=== PATIENT | female | born 1965 | race Caucasian/White ===

== ENCOUNTER 2019-12-02 12:30 | Emergency (ER) | payer OTHER ==
--- NOTE | 2019-12-02 13:31 | ED Physician Documentation ---
History of Present Illness - Stated complaint Stated Complaint: R FOOT INJ - Chief complaint Chief Complaint: Trauma Ext - History obtained from History obtained from: Patient - History of Present Illness Timing: How many days ago (3) - Additonal information Additional information: 54-year-old female presents to the emergency department with acute right foot and ankle pain. Reports descending stairs 3 days ago missing the last 2 stairs and falling forward onto her foot. She had immediate and extensive swelling of the foot and ankle both medially and bilaterally. She has not been able to bear any weight and has been using home crutches. She has iced the foot continuously now for over 36 hours secondary to pain and bruising. No history of previous injury to the foot though she is on steroids chronically due to a history of adrenal insufficiency Review of Systems Constitutional: reports: Reviewed and negative Eyes: reports: Reviewed and negative Ears: reports: Reviewed and negative Nose: reports: Reviewed and negative Cardiac: reports: Reviewed and negative Respiratory: reports: Reviewed and negative GI: reports: Reviewed and negative : reports: Reviewed and negative Skin: reports: Other (Dense of bruising to the right foot and ankle) Musculoskeletal: reports: Extremity pain, Joint pain, Extremity swelling, Joint swelling Neurologic: reports: Reviewed and negative Psychiatric: reports: Reviewed and negative Endocrine: reports: Other (adrenal insufficiency) PD PAST MEDICAL HISTORY - Past Medical History Past Medical History: Yes Cardiovascular: None Respiratory: None Neuro: None Endocrine/Autoimmune: None GI: None ELEMENTARY SCHOOL REGISTRAR: None : None HEENT: None Psych: None Musculoskeletal: None Derm: None - Past Surgical History Past Surgical History: No Ortho: Rotator cuff repair /ELEMENTARY SCHOOL REGISTRAR: section - Present Medications Home Medications: Ambulatory Orders Medication Instructions Recorded Confirmed Hydrocodone/Acetaminophen [[employer] 1 each PO BID PRN #15 tablet 12/02/19 5-325 Tablet] - Allergies Allergies/Adverse Reactions: Allergies Allergy/AdvReac Type Severity Reaction Status Date / Time shellfish derived Allergy Unknown Verified 12/02/19 13:01 - Social History Does the pt smoke?: No Smoking Status: Never smoker - Immunizations Immunizations are current?: Yes - POLST Patient has POLST: No PD ED PE EXPANDED - General General: Alert, No acute distress, Well developed/nourished - Extremities Extremities: Right ankle (swelling lateral and medial malleolous; normal dorsi and plant frlexion. Full ROM of right ankle), Right foot (swelling and ecchymosis dorsum of right food over the 2,3,4,5th metatarsals. tenderness with palpation proximal 4/5th metatarsals) Results - Vitals Vitals: Vital Signs - 24 hr 12/02/19 12:54 Temperature 36.6 C Heart Rate 61 Respiratory 14 Rate Blood Pressure 108/73 O2 Saturation 99 Oxygen O2 Source Room air - Rads (name of study) right ankle/foot Radiology: Final report received (Avulsion injury Involving the lateral aspect o f the calcaneal cuboid joint with lateral soft tissue swelling) Departure - Departure Disposition: 01 Home, Self Care Clinical Impression: Ankle fracture, right Qualifiers: Encounter type: initial encounter Fracture type: closed Qualified Code(s): S82.891A - Other fracture of right lower leg, initial encounter for closed fracture Condition: Stable Record reviewed to determine appropriate education?: Yes Follow-Up: Joseph Shannon MD [Provider Admit Priv/Credential] - Prescriptions: Hydrocodone/Acetaminophen [[employer] 5-325 Tablet] 1 each PO BID PRN #15 tablet PRN Reason: Pain Comments: The x-ray shows that you have an avulsion fracture of the calcaneal cuboid joint on your right foot. The splint that we have placed you in is temporary. Please call the orthopedics department to schedule follow-up tomorrow. If at any point you have numbness or tingling in the foot feel that the splint is too tight or develop fevers please return to the emergency department to be reevaluated. Continue to be nonweightbearing on the ankle until seen by orthopedics therefore use your crutches at all times I have prescribed a limited amount of Vicodin for severe pain do not drive if taking it. I do recommend Tylenol or ibuprofen for pain control otherwise
[2019-12-02] MEDS ORDERED: HYDROcod/ACETAM 5/325 MG TABLET PO STA (13:37)
--- NOTE | 2019-12-02 14:22 | XRAY Report ---
PROCEDURE: Ankle 3 View RT INDICATIONS: pain; r/o fx TECHNIQUE: 3 views of the ankle were acquired. COMPARISON: None FINDINGS: Bones: Suggestion of a remote injury involving lateral and dorsal aspect of calcaneocuboid joint is s een. No other fracture or dislocation. Ankle mortise is normally aligned. No suspicious bony lesions . Soft tissues: No tibiotalar joint effusion. Achilles tendon appears normal. Mild lateral ankle sof t tissue swelling is seen. IMPRESSION: Acute avulsion injury involving lateral and dorsal aspect of proximal cuboid adjacent to the calcaneocuboid joint with lateral ankle soft tissue swelling. Reviewed by: Glenn Moore MD on 12/02/2019 2:21 PM PDT Approved by: Glenn Moore MD on 12/02/2019 2:21 PM PDT Station ID: [id number]
--- NOTE | 2019-12-02 14:24 | XRAY Report ---
PROCEDURE: Foot 3 View RT INDICATIONS: fall r/o fracture TECHNIQUE: 3 views of the foot were acquired. COMPARISON: None FINDINGS: Bones: Subtle cortical irregularity involving lateral aspect of anterior calcaneus/proximal cuboid moe ne is seen suggestive of avulsion injury in this area. Mild lateral ankle and hindfoot soft tissue sw elling is also seen. No suspicious bony lesions. Soft tissues: No tibiotalar joint effusion. Achilles tendon appears normal. IMPRESSION: Suggestion of acute avulsion injury involving lateral aspect of calcaneocuboid joint with lateral sof t tissues swelling. Reviewed by: Glenn Moore MD on 12/02/2019 2:22 PM PDT Approved by: Glenn Moore MD on 12/02/2019 2:22 PM PDT Station ID: [id number]
[2019-12-02 15:18] VITALS: BP 136/78
== END 2019-12-02 15:19 | disposition home or self-care (01) ==
LOC: ED 12:30
DX: S92.211A Displaced fracture of cuboid bone of right foot, initial encounter for closed fracture (principal); W10.9XXA Fall (on) (from) unspecified stairs and steps, initial encounter; Y93.89 Activity, other specified
CPT/HCPCS: 73610; 73630; 99283; A9270

== ENCOUNTER 2020-01-23 08:00 | Outpatient (CLI) | payer OTHER ==
--- NOTE | 2020-01-23 16:20 | XRAY Report ---
PROCEDURE: Foot 3 View RT INDICATIONS: RIGHT FOOT FRACTURE TECHNIQUE: 3 nonweightbearing views of the foot were acquired. COMPARISON: Right foot radiographs dated 12/02/2019 FINDINGS: Bones: Small osseous fragment is seen adjacent to lateral aspect of the cuboid at the level of the ca lcaneocuboid articulation. Stable mild osseous irregularity at the dorsal aspect of the talar head. F indings do not appear significantly changed when compared to the radiographs from 12/02/2019. No suspi cious bony lesions. Soft tissues: Soft tissue edema is seen surrounding the ankle. IMPRESSION: Tiny osseous fragment adjacent to the calcaneocuboid joint may represent an avulsion fragment, not si gnificantly changed in appearance when compared to the radiographs from 12/02/2019. There is also inta ct osseous irregularity at the dorsal aspect of the talar head. Reviewed by: Nate Sanchez MD on 01/23/2020 4:18 PM PST Approved by: Nate Sanchez MD on 01/23/2020 4:18 PM PST Station ID: [id number]
== END 2020-01-23 23:59 | disposition home or self-care (01) ==
LOC: DI.WCP 08:00
PROVIDERS: ATTEND Physician Assistant
DX: S92.214D Nondisplaced fracture of cuboid bone of right foot, subsequent encounter for fracture with routine healing (principal)

== ENCOUNTER 2020-10-12 08:12 | Outpatient (CLI) | payer OTHER ==
--- NOTE | 2020-10-12 17:03 | XRAY Report ---
PROCEDURE: Foot 3 View RT INDICATIONS: R FOOT PX TECHNIQUE: 3 views of the right foot were acquired. COMPARISON: 01/23/2020 FINDINGS: Bones: No fractures or dislocations. Small osseous fragment adjacent to the lateral margin of the cu boid bone is identified 01/23/2020 is not seen on the current study. No suspicious bony lesions. Soft tissues: No tibiotalar joint effusion. Achilles tendon appears normal. IMPRESSION: No fracture. No osseous lesion. If there are persistent symptoms or continued clinical concern for pa thology, then repeat plain film radiographs (7-10 days) or advanced imaging (CT, MR, bone scan) shoul d be considered for further evaluation. Reviewed by: Jhoana Reid MD, PhD on 10/12/2020 5:01 PM PDT Approved by: Jhoana Reid MD, PhD on 10/12/2020 5:01 PM PDT Station ID: [id number]
== END 2020-10-12 23:59 | disposition home or self-care (01) ==
LOC: DI.N 08:12
PROVIDERS: ATTEND Physician Assistant
DX: M79.671 Pain in right foot (principal)

== ENCOUNTER 2020-11-11 09:34 | Outpatient (CLI) | payer OTHER ==
[2020-11-11 15:47] LABS: CALCIUM 9.4 mg/dL (8.5-10.3); POTASSIUM 4.7 mmol/L (3.5-5.0)
[2020-11-11 16:03] LABS: ALBUMIN 3.8 g/dL (3.2-5.5); ALBUMIN/GLOBULIN RATIO 1.5 (1.0-2.2); BILIRUBIN,TOTAL 0.5 mg/dL (0.2-1.0); CREATININE 0.6 mg/dL (0.4-1.0); TOTAL PROTEIN 6.3 g/dL (6.7-8.2)
== END 2020-11-11 09:35 | disposition home or self-care (01) ==
LOC: LAB.S 09:34
PROVIDERS: ATTEND Student in an Organized Health Care Education/Training Program
DX: E27.49 Other adrenocortical insufficiency (principal)
CPT/HCPCS: 36415; 80053

== ENCOUNTER 2021-01-05 07:59 | Emergency (ER) | payer OTHER ==
[2021-01-05 08:11] VITALS: BP 116/70
--- NOTE | 2021-01-05 08:22 | ED Physician Documentation ---
PD HPI LOWER EXT INJURY - Stated complaint Stated Complaint: LT LEG INJURY - Chief complaint Chief Complaint: Laceration - History obtained from History obtained from: Patient - History of Present Illness PD HPI LOW EXT INJURY LOCATION: Left Type of injury: Fall (she was getting ready to go to airport for business trip and tripped over her suitcase getting out to car, with striking guillory as fell. Was wearing pants but got skin tear/lac through the clothing, from blunt edge. Large flap laceration front of left lower leg.) Where injury occurred: Home Timing - onset: How many hours ago (1), Today Timing - details: Abrupt onset, Still present Worsened by: Moving, Palpating, Other (she cleansed and apllied bandages to the laceration.) Associated symptoms: No: Weakness, Numbness Similar symptoms before: Has not had sx before, Other (is on chronic steroids due to Addisons disease and states skin bruises easily and slow healing.) Recently seen: Not recently seen Review of Systems Constitutional: denies: Fever, Chills Cardiac: denies: Chest pain / pressure GI: denies: Abdominal Pain Skin: reports: Laceration (s) Neurologic: denies: Focal weakness, Numbness, Altered mental status, Headache PD PAST MEDICAL HISTORY - Past Medical History Cardiovascular: None Respiratory: None Neuro: None Endocrine/Autoimmune: None GI: None AUTOMOTIVE ENGINEERING TECHNICIAN: None : None HEENT: None Psych: None Musculoskeletal: None Derm: None - Past Surgical History Past Surgical History: No Ortho: Rotator cuff repair /AUTOMOTIVE ENGINEERING TECHNICIAN: section - Present Medications Home Medications: Ambulatory Orders Medication Instructions Recorded Confirmed Hydrocodone/Acetaminophen [[place] 1 each PO BID PRN #15 tablet 12/02/19 5-325 Tablet] HYDROcod/ACETAM 5/325 [[place] 5/325] 1 ea PO Q6H PRN #18 tablet 01/05/21 cephALEXin [Keflex] 500 mg PO TID #20 cap 01/05/21 - Allergies Allergies/Adverse Reactions: Allergies Allergy/AdvReac Type Severity Reaction Status Date / Time shellfish derived Allergy Unknown Verified 01/05/21 08:11 - Social History Does the pt smoke?: No Smoking Status: Never smoker - Immunizations Immunizations are current?: Yes - POLST Patient has POLST: No PD ED PE NORMAL - Vitals Vital signs reviewed: Yes - General General: Alert and oriented X 3, Well developed/nourished, Other (appears in pain due to lower leg, and limping gait, but able to put full weight on leg. ) - Neck Neck: Supple, no meningeal sign, No bony TTP - Cardiac Cardiac: RRR, No murmur - Respiratory Respiratory: Clear bilaterally - Abdomen Abdomen: Soft, Non tender - Derm Derm: Normal color, Warm and dry - Extremities Extremities: No deformity (tender anterior lower leg without deformity. FLap lac with length 10 cm. ), Other (left anterior lower leg has U-shaped flap lac with connected portion inferior. The upper portion has the tibia almost exposed with just some fatty layer just over it. The lacerated flap is full thickness skin so seem viable base, though the skin layer is thin. no FB. Minimal bleeding in base. ) - Neuro Neuro: Alert and oriented X 3, No motor deficit, No sensory deficit, Normal speech Eye Opening: Spontaneous Motor: Obeys Commands Verbal: Oriented GCS Score: 15 Results - Vitals Vitals: Vital Signs - 24 hr 01/05/21 08:08 Temperature 36.1 C L Heart Rate 101 H Respiratory 16 Rate Blood Pressure 116/70 O2 Saturation 100 Oxygen O2 Source Room air - Rads (name of study) left tib/fib Radiology: Prelim report reviewed (no fractures nor osseous abnormality.), See rad report Procedures - Laceration (location) left anterior lower leg Length in cm: 10 (skin at superior part is the thinnest, but still just full thickness. ) Wound type: Flap, Into subcut fat Neurovascular status: Sensory intact, Motor intact, Vascular intact Anesthesia: Lidocaine 1% with epi, Marcaine 0.5% Wound preparation: Irrigated copiously NS, Wound explored, To the base, debridement of wound edges (traumatic laceration/avulsion) Skin layer closure: Steri strips, Running, Size #-0 - enter number (4), Sutures - enter # (many) Other: Patient tolerated well, No complications, Neurovascular intact, Dressing applied, Tetanus UTD PD MEDICAL DECISION MAKING - ED course Complexity details: reviewed results (no fractures), considered differential (Large flap laceration to fatty tissue layer so likely viable tissue, though fragile skin due to steroids. Concern for slow healing, and suggest tight follow up with PMD and possible wound care clinic. ), d/w patient Departure - Departure Disposition: 01 Home, Self Care Clinical Impression: Laceration of lower leg Qualifiers: Encounter type: initial encounter Laterality: left Qualified Code(s): S81.812A - Laceration without foreign body, left lower leg, initial encounter Condition: Stable Record reviewed to determine appropriate education?: Yes Instructions: ED Laceration All Follow-Up: Feliberto Watters MD [Primary Care Provider] - Prescriptions: cephALEXin [Keflex] 500 mg PO TID #20 cap HYDROcod/ACETAM 5/325 [[place] 5/325] 1 ea PO Q6H PRN #18 tablet PRN Reason: Pain Comments: Keep the Steri-Strips and sutures clean and dry. Change the dressing over them once or twice daily. Allow the Steri-Strips to fall off on their own after hopefully week or so. At that point you can start using ointment gently to the wound. The sutures want to be removed in about 10 to 14 days to give a longer time for healing. It would be good to have the wound checked again after several days (when back from your trip/early next week). Contact your primary care and see if they will see you or otherwise he can have the wound checked at the walk-in clinic on the [place] or back here in the ER. Crutches for partial weight bearing to reduce the skin movement and tension initially while healing. Brief walking is okay (bathroom and back, etc). This will take several weeks and healing. Your primary care may want to refer you to the wound care clinic here at the hospital. He would have to phone it in all order to it in order for that to happen. Alternatively the phone number to the wound care clinic is, and you can call them directly to see what is required in order to get follow-up there. Cephalexin antibiotic 3 times a day for a week to reduce the chance of infection. Tylenol every 4-6 hours if needed for pain or hydrocodone if needed for worse pain. I phoned prescriptions to [facility] in [place]. I am prescribing a short course of narcotic pain medication for you. These are potentially dangerous and addictive medications that should be used carefully. These medications may constipate you. Take an [id number] stool softener such as docusate twice daily with plenty of water while taking these medications. If you go 24 hours without a bowel movement, take [id number] MiraLAX, per package instructions. Do not drink or drive while taking these medications. If you received narcotic or sedating medications while in the emergency department do not drive for 24 hours. Store this medication in a safe, secure place and out of reach of children. It is a violation of federal law to give or sell this medication to another person or to use in a manner other than prescribed. The ED will not refill narcotic prescriptions, including prescriptions lost or stolen. You can dispose of unwanted medications at the [facility]'s office or at several pharmacies such as [facility]. Discharge Date/Time: 01/05/21 10:45
[2021-01-05] MEDS ORDERED: KETOROLAC 30 MG/ML VIAL IM STA (08:42)
[2021-01-05] MEDS ORDERED: LIDOCAINE 1%-EPI 1:100000 20 ML MDV SUBQ STA (08:42)
[2021-01-05] MEDS ORDERED: diazePAM 5 MG TABLET PO STA (08:56)
--- NOTE | 2021-01-05 09:12 | XRAY Report ---
PROCEDURE: Tib/Fib LT INDICATIONS: struck left lower leg TECHNIQUE: 2 views of the tibia and fibula were acquired. COMPARISON: None. FINDINGS: BONES: No acute, displaced fracture or dislocation. SOFT TISSUES: Defect overlying the mid to distal fibula, which may reflect laceration. No radiopaque foreign body. IMPRESSION: 1.No acute osseous abnormality. Reviewed by: Jung Church MD on 01/05/2021 9:10 AM PDT Approved by: Jung Church MD on 01/05/2021 9:10 AM PDT Station ID: [id number]
[2021-01-05] MEDS ORDERED: cephALEXin 250 MG CAPSULE PO STA (10:26)
== END 2021-01-05 10:45 | disposition home or self-care (01) ==
LOC: ED 07:59
DX: S81.812A Laceration without foreign body, left lower leg, initial encounter (principal); W01.0XXA Fall on same level from slipping, tripping and stumbling without subsequent striking against object, initial encounter; Y93.01 Activity, walking, marching and hiking; Y92.009 Unspecified place in unspecified non-institutional (private) residence as the place of occurrence of the external cause
CPT/HCPCS: 12004; 73590; 96372; 99283; A9270

== ENCOUNTER 2021-03-16 11:02 | Outpatient (CLI) | payer OTHER ==
--- NOTE | 2021-03-16 12:07 | XRAY Report ---
PROCEDURE: Tib/Fib LT INDICATIONS: SKIN ULCER,LEFT PRETIBIAL REGION W/ FAT LAYER EXPO TECHNIQUE: 2 views of the tibia and fibula were acquired. COMPARISON: X-ray tib-fib 01/05/2021 FINDINGS: Bones: No fractures or dislocations. No suspicious bony lesions. Soft tissues: No suspicious soft tissue calcifications or masses. There is appearance of overlying bandage at the mid anterior tibial region. Slight irregularity of the skin surface is noted, partiall y visualized by overlying bandage. IMPRESSION: Slight irregularity of the skin surface likely corresponding to area of ulcer in the anterior tibial region. No underlying osseous abnormality. Reviewed by: Chelly Daniels MD on 03/16/2021 12:06 PM PST Approved by: Chelly Daniels MD on 03/16/2021 12:06 PM PST Station ID: [id number]
== END 2021-03-16 11:03 | disposition home or self-care (01) ==
LOC: DI.S 11:02
DX: L97.822 Non-pressure chronic ulcer of other part of left lower leg with fat layer exposed (principal)

== ENCOUNTER 2021-09-17 14:50 | Outpatient (CLI) | payer OTHER | END 2021-09-17 14:51 | disposition left against medical advice (07) | LOC: EMS 14:50 | DX: R25.1 Tremor, unspecified (principal); R53.1 Weakness; E27.1 Primary adrenocortical insufficiency ==

== ENCOUNTER 2021-11-25 08:00 | Outpatient (CLI) | payer OTHER ==
--- NOTE | 2021-11-25 21:34 | XRAY Report ---
PROCEDURE: Wrist 4 View LT INDICATIONS: LEFT WRIST PAIN TECHNIQUE: 4 views of the wrist were acquired. COMPARISON: None FINDINGS: Bones: No fractures or dislocations. No suspicious bony lesions. Scaphoid view: Scaphoid appears intact. Scapholunate interval is maintained. Soft tissues: No suspicious soft tissue calcifications. IMPRESSION: Left wrist without acute fracture or dislocation. If there is continued clinical concern for pathology or occult fracture, consider follow-up imaging w ith repeat radiographs in 10-14 days and possible advanced imaging (CT, MRI, bone scan) if symptoms p ersist. Reviewed by: Arden Minaya MD on 11/25/2021 9:33 PM PDT Approved by: Arden Minaya MD on 11/25/2021 9:33 PM PDT Station ID: [id number]
== END 2021-11-25 08:01 | disposition home or self-care (01) ==
LOC: DI.S 08:00
PROVIDERS: ATTEND Physician Assistant Medical
DX: M25.532 Pain in left wrist (principal)